=== PATIENT | male | born 1955 | race Caucasian/White ===

== ENCOUNTER 2023-06-03 06:48 | Day surgery (SDC) | payer OTHER ==
[~2023-06-03] VITALS: Ht 175.3 cm; Wt 104.6 kg
[~2023-06-03 06:48] MED LIST: DEXAMETHASONE SOD PHOSPHATE 4 MG/ML VIAL ONE; KETOROLAC TROMETHAMINE 30 MG VIAL ONE; NS IRRIG SOLN 1000 ML IR ONE; PHENYLEPHRINE HCL 10 MG/ML VIAL (NEOSYNEPHRINE) ONE; SEVOFLURANE 15 MIN GAS INH ONE; SUGAMMADEX SODIUM 200 MG/2 ML VIAL IV ONE; WATER FOR IRRIGATION,STERILE 1,000 ML IRRIG.SOLN IR ONE; fentaNYL CITRATE/PF 100 MCG/2 ML AMP ONE
[2023-06-03] MEDS: LR 1,000 ML IV SCH (07:00)
[2023-06-03] MEDS: ceFAZolin SODIUM 2 GM in D5W 50 ML IV ONE (07:00)
[2023-06-03] MEDS ORDERED: NALOXONE HCL 0.4 MG/ML AMP (NARCAN) IVP PRN (12:45)
[2023-06-03] MEDS ORDERED: HYDROmorphone 1 MG/ML INJ. CARTRIDGE IVP PRN (12:45)
[2023-06-03] MEDS ORDERED: hydrALAZINE HCL 20 MG/ML VIAL IV PRN (12:45)
[2023-06-03] MEDS ORDERED: KETOROLAC TROMETHAMINE 30 MG VIAL IM PRN (12:45)
[2023-06-03] MEDS ORDERED: ONDANSETRON HCL 4 MG/2 ML VIAL ONE (14:14)
[2023-06-03] MEDS: HYDROmorphone 1 MG/ML INJ. CARTRIDGE IVP PRN (14:15)
[2023-06-03] MEDS: ONDANSETRON HCL 4 MG/2 ML VIAL IVP PRN (14:20)
[2023-06-03] MEDS ORDERED: SIMV-343 PO (17:13)
[2023-06-03] MEDS ORDERED: CEL20 PO (17:13)
[2023-06-03] MEDS ORDERED: LOSA-415 PO (17:13)
[2023-06-03] MEDS ORDERED: METF-379 PO (17:13)
[2023-06-03] MEDS ORDERED: AMOX875T2 PO (17:13)
[2023-06-03] MEDS ORDERED: ONDANSETRON HCL 4 MG/2 ML VIAL IVP PRN (17:15)
[2023-06-03] MEDS ORDERED: ACETAMINOPHEN 325 MG TABLET PO PRN (17:15)
[2023-06-03] MEDS ORDERED: HYDROcodone/ACETAMIN 5-325 MG TAB (NORCO/ VICODIN) PO PRN (17:15)
[2023-06-03] MEDS: KETOROLAC TROMETHAMINE 30 MG VIAL ONE (19:45)
[2023-06-03 21:00] VITALS: BP_SYST 134; PULSE 80; RESP 18; TEMP 97.7; O2SAT 95
[2023-06-03] MEDS: DOCUSATE SODIUM 250 MG CAPSULE PO SCH (22:53)
[2023-06-03] MEDS: NORMAL SALINE 5 ML DISP.SYRIN IVF SCH (22:54)
[2023-06-04] MEDS: CEFAZOLIN 1 GM IVPB PREMIX 50 ML IV SCH (00:17)
[2023-06-04] MEDS: CEFAZOLIN 1 GM IVPB PREMIX 100 ML IV ONE (00:21)
[2023-06-04 07:57] VITALS: BP_SYST 134; PULSE 85; RESP 18; TEMP 98.4; O2SAT 94
[2023-06-04 11:31] VITALS: BP_SYST 144; PULSE 91; RESP 18; TEMP 98.3; O2SAT 95
== END 2023-06-04 11:37 | disposition home or self-care (01) ==
LOC: SDS 06:48 → SMU 06:49 → SDS 06-04 11:37
PROVIDERS: ATTEND Surgery
DX: K40.20 Bilateral inguinal hernia, without obstruction or gangrene, not specified as recurrent (principal); I10 Essential (primary) hypertension; E11.42 Type 2 diabetes mellitus with diabetic polyneuropathy; E78.5 Hyperlipidemia, unspecified; F32.5 Major depressive disorder, single episode, in full remission; E66.01 Morbid (severe) obesity due to excess calories; Z79.84 Long term (current) use of oral hypoglycemic drugs; Z79.899 Other long term (current) drug therapy; Z98.890 Other specified postprocedural states; Z68.35 Body mass index [BMI] 35.0-35.9, adult; Z82.3 Family history of stroke; Z83.3 Family history of diabetes mellitus
CPT/HCPCS: 49650; 87081; 71045; 82948; S2900; J3490; J1100; J1885 ×2; J2370; J3010; C1781; J0690 ×2; J2405; J7060; C1727